=== PATIENT | female | born 1970 | race Caucasian/White ===

== ENCOUNTER → 2017-10-12 | Outpatient (CLI) | payer BC ==
[~2017-10-12] MED LIST: LEXAPRO20 MG PO; MOTRIN 800800 MG/TAB PO; PERCOCET 5/321 UDTAB PO
== END ==
LOC: MC.RAD 06:58
DX: Z12.31 Encounter for screening mammogram for malignant neoplasm of breast (principal)

== ENCOUNTER → 2019-01-24 | Outpatient (CLI) | payer BC | LOC: MC.RAD 06:52 | DX: Z12.31 Encounter for screening mammogram for malignant neoplasm of breast (principal) ==

== ENCOUNTER → 2020-06-06 | Outpatient (CLI) | payer BC | LOC: MC.RAD 07:22 | DX: Z12.31 Encounter for screening mammogram for malignant neoplasm of breast (principal) ==

== ENCOUNTER → 2021-08-14 | Outpatient (CLI) | payer BC | LOC: MC.RAD 06:52 | DX: Z12.31 Encounter for screening mammogram for malignant neoplasm of breast (principal) ==

== ENCOUNTER 2024-03-03 08:13 | Day surgery (SDC) | payer BC ==
[~2024-03-03] VITALS: Ht 172.7 cm; Wt 75.3 kg
[~2024-03-03 08:13] MED LIST changes: +LR 1,000 ML IV SCH; +Ondansetron 4 MG/2 ML VIAL IV PRN
[2024-03-03] MEDS ORDERED: PRINIVIL10 MG PO (09:26)
[2024-03-03] MEDS ORDERED: ESTRACE2 MG PO (09:26)
[2024-03-03] MEDS ORDERED: Lidocaine PF 2% (20 MG/ML) 5 ML VIAL ONE (09:58)
[2024-03-03 10:25] VITALS: BP 99/61; PULSE 68
[2024-03-03 10:40] VITALS: BP 103/71; PULSE 65
--- NOTE | 2024-03-03 10:42 | NUR ---
1025 PATIENT RETURNS TO [facility] [place] VIA CART. PT AWAKE AND ALERT. RESPIRATIONS UNLABORED. AMBULATED TO RECLINER CHAIR WITH 2:1 SBA. PT DENIES NAUSEA OR ABDOMINAL PAIN. HOOKED UP TO MONITOR AND VS OBTAINED. CALL LIGHT AT SIDE AND PRESENT. 1045 PATIENT TOLERATING DRINK AND SNACK WITHOUT NAUSEA OR DIFFICULTY SWALLOWING (EGD ONLY). 1035 IN ROOM SPEAKING WITH PATIENT. 1040 D/C INSTRUCTIONS REVIEWED WITH PATIENT. PT VERBALIZED UNDERSTANDING AND A COPY OF INSTRUCTIONS PROVIDED IN D/C FOLDER. 1050 PATIENT DRESSES SELF. 1100 PATIENT DISCHARGED FROM UNIT VIA W/C TO A PERSONAL VEHICLE. PT LEFT HOSPITAL IN STABLE CONDITION.
[2024-03-03 10:54] VITALS: BP 116/71; PULSE 64
[2024-03-03 13:46] VITALS: BP 163/80; PULSE 77; TEMP 97.5
== END 2024-03-03 11:00 | disposition home or self-care (01) ==
LOC: SDCO 08:13
DX: Z12.11 Encounter for screening for malignant neoplasm of colon (principal); D12.3 Benign neoplasm of transverse colon
CPT/HCPCS: J2704; J7120